=== PATIENT | male | born 1955 | race Caucasian/White ===

== ENCOUNTER 2020-12-01 18:12 | Emergency (ER) | payer BC ==
[~2020-12-01] VITALS: Ht 172.7 cm; Wt 148.9 kg
[2020-12-01] MEDS ORDERED: FISH OIL 1000MG1 CAP PO (19:07)
[2020-12-01] MEDS ORDERED: ASPIRIN E.C. 8181 MG PO (19:07)
[2020-12-01] MEDS ORDERED: BENICAR HCT 251 TAB PO (19:08)
[2020-12-01] MEDS ORDERED: ONE DAILY FOR1 EAC1 PO (19:09)
[2020-12-01 19:12] LABS: EOS # 0.2 (0.04-0.40); EOS % 3.4 % (0.0-4.0); HEMATOCRIT 47.2 % (42.0-52.0); LYMPH# 1.1 (1.50-4.00); MEAN CELL VOLUME 95 fl (78-100); MEAN CORPUSCULAR HEMOGLOBIN 30 pg (27-31); MEAN CORPUSCULAR HGB CONC 32 g/dL (33-37); MEAN PLATELET VOLUME 11.3 fl (7.4-10.4); MONO # 0.4 (0.20-0.80); NEU # 3.1 (1.40-6.50); PLATELET COUNT 112 K/mm3 (130-400); RED BLOOD COUNT 4.99 M/mm3 (4.20-5.60); WHITE BLOOD COUNT 4.7 K/mm3 (4.8-10.8)
[2020-12-01 19:23] LABS: POTASSIUM 5.1 mmol/L (3.5-5.1); SODIUM 139 mmol/L (136-145)
[2020-12-01 19:24] LABS: CALCIUM 8.8 mg/dL (8.3-10.5)
[2020-12-01 19:26] LABS: GLUCOSE 122 mg/dL (75-110); TOTAL PROTEIN 7.5 g/dL (6.2-8.1)
[2020-12-01 19:27] LABS: CARBON DIOXIDE 31 mmol/L (23-31)
[2020-12-01 19:31] LABS: AST-SGOT 18 U/L (5-34)
[2020-12-01 19:32] LABS: ALT/SGPT 16 U/L (0-55)
[2020-12-01 19:43] LABS: PROTHROMBIN TIME 13.8 SECONDS (9.0-12.0)
[2020-12-01 19:46] LABS: D-DIMER 0.2 mg/L FEU (0.15-0.50); TROPONIN-I < 0.03 ng/mL (<0.030)
[2020-12-01 20:08] LABS: PARTIAL THROMBOPLASTIN TIME 20.8 SECONDS (21.0-32.0)
[2020-12-01] MEDS ORDERED: TIAZAC180 MG PO (20:49)
[2020-12-01 21:07] LABS: URINE APPEARANCE CLEAR; URINE BILIRUBIN NEGATIVE (NEGATIVE); URINE BLOOD NEGATIVE (NEGATIVE); URINE COLOR YELLOW; URINE GLUCOSE NEGATIVE (NEGATIVE); URINE KETONE NEGATIVE (NEGATIVE); URINE LEUKOCYTE ESTERASE NEGATIVE (NEGATIVE); URINE NITRATE NEGATIVE (NEGATIVE); URINE PROTEIN(semi-quant) TRACE mg/dL (NEGATIVE); URINE UROBILINOGEN NORMAL (NORMAL)
[2020-12-01 21:08] LABS: URINE MUCUS PRESENT (NOT PRESENT)
[2020-12-01 22:08] VITALS: BP 123/73
== END 2020-12-01 22:08 | disposition short-term general hospital (02) ==
LOC: ED 18:12
PROVIDERS: Nurse Practitioner
DX: J18.9 Pneumonia, unspecified organism (principal); Z20.822 Contact with and (suspected) exposure to COVID-19; I10 Essential (primary) hypertension; Z79.82 Long term (current) use of aspirin
CPT/HCPCS: J0456; J0696; J1100; J7050